=== PATIENT | female | born 1975 | race Caucasian/White ===

== ENCOUNTER 2017-10-20 01:52 | Emergency (ER) | payer BC, OTHER ==
[2017-10-20] MEDS ORDERED: HYDROmorphONE/DILAUDID 1 MG/ML INJ ONE (01:54)
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
[2017-10-20] MEDS ORDERED: NS 1,000 ML IV ONE (02:11)
[2017-10-20] MEDS ORDERED: ONDANSETRON DISINTEGRATING 4 MG TAB ONE (02:14)
[2017-10-20] MEDS ORDERED: ONDANSETRON DISINTEGRATING 4 MG TAB PO ONE (02:14)
[2017-10-20] MEDS ORDERED: KETOROLAC 30 MG/1 ML SDV IM ONE (02:14)
[2017-10-20] MEDS ORDERED: KETOROLAC 30 MG/1 ML SDV ONE (02:15)
[2017-10-20 02:34] LABS: PLATELET COUNT 262 10^3/uL (150-400)
[2017-10-20] MEDS ORDERED: HYDROCOD/APAP 5/325 PREPACK#6 BTL TAKEHOME ONE ×2 (03:01→03:06)
[2017-10-20] MEDS ORDERED: TAMSULOSIN HCL 0.4 MG CAP PO ONE ×2 (03:02→03:06)
[2017-10-20 03:12] VITALS: BP 112/72
== END 2017-10-20 03:26 | disposition home or self-care (01) ==
LOC: CED 01:52
DX: N20.1 Calculus of ureter (principal); E86.9 Volume depletion, unspecified
CPT/HCPCS: 74176-PO; 80048-PO; 84703-PO; 85025-PO; J1170; J1885

== ENCOUNTER 2018-09-14 01:00 | Emergency (ER) | payer BC ==
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
[2018-09-14] MEDS ORDERED: KETOROLAC 15 MG/1 ML SDV ONE (01:46)
[2018-09-14] MEDS ORDERED: HYDROCOD/APAP 5/325 PREPACK#6 BTL TAKEHOME ONE (01:47)
[2018-09-14] MEDS ORDERED: KETOROLAC 15 MG/1 ML SDV IVP ONE (01:47)
[2018-09-14 02:17] VITALS: BP 124/88
== END 2018-09-14 02:14 | disposition home or self-care (01) ==
LOC: CED 01:00
DX: N20.0 Calculus of kidney (principal); R31.9 Hematuria, unspecified
CPT/HCPCS: 96374-ER; 99284-ER; J1885